=== PATIENT | male | born 1995 | race Caucasian/White ===

== ENCOUNTER 2020-03-29 12:41 | Inpatient (IN) | payer OTHER ==
[~2020-03-29] VITALS: Ht 170.2 cm; Wt 58.1 kg
[2020-03-30] MEDS: TraMADol HCL 50 MG TABLET PO PRN (18:59)
[2020-03-30 19:00] VITALS: BP 122/70
[2020-03-30] MEDS: SENNA 187 MG TABLET PO SCH (21:04)
[2020-03-30] MEDS: DOCUSATE SODIUM 100 MG CAPSULE PO SCH (21:04)
[2020-03-30 21:18] VITALS: BP 122/70
[2020-03-31 00:27] VITALS: BP 116/68
[2020-03-31] MEDS: ACETAMINOPHEN 325 MG TABLET PO PRN ×3 (00:27→16:40)
[2020-03-31 06:44] LABS: BASOPHILS % (AUTO) 0.6 % (0.0-2.0); HEMATOCRIT 29.2 % (41-53); HEMOGLOBIN 9.8 g/dL (13.5-17.5); LYMPHOCYTES # (AUTO) 0.9 K/uL (1.0-4.8); LYMPHOCYTES % (AUTO) 13.1 % (22.0-44.0); MEAN CORPUSCULAR HEMOGLOBIN 27.6 pg (26.0-34.0); MEAN CORPUSCULAR HGB CONC 33.7 G/dL (31.0-37.0); MEAN CORPUSCULAR VOLUME 82 fL (80-100); MONOCYTES # (AUTO) 0.7 K/uL (0.1-1.0); MONOCYTES % (AUTO) 9.7 % (2.0-9.0); NEUTROPHILS # (AUTO) 5.5 K/uL (1.8-7.7); NEUTROPHILS % (AUTO) 75.6 % (40.0-70.0); PLATELET COUNT (AUTO) 272 K/uL (150-450); RED BLOOD CELL COUNT(AUTO) 3.55 MIL/uL (4.50-5.90); RED CELL DISTRIBUTION WIDTH 15.1 % (11.5-14.5)
[2020-03-31 07:14] LABS: ALANINE AMINOTRANSFERASE 35 U/L (12-78); ALBUMIN 2.5 g/dL (3.4-5.0); ALKALINE PHOSPHATASE 98 U/L (46-116); ANION GAP 6 mmol/L (8-16); ASPARTATE AMINOTRANSFERASE 16 U/L (15-37); BILIRUBIN,TOTAL 0.3 mg/dL (0.1-1.0); CALCIUM, TOTAL 9.1 mg/dL (8.8-10.5); CARBON DIOXIDE 28 mmol/L (22-29); CHLORIDE 101 mmol/L (98-107); CREATININE 0.75 mg/dL (0.60-1.30); GLOMERULAR FILTR. RATE CALC > 60 mL/min (>60); GLUCOSE,RANDOM 96 mg/dL (70-110); POTASSIUM 3.9 mmol/L (3.5-5.1); SODIUM SERUM 135 mmol/L (136-145); TOTAL PROTEIN, SERUM 7.9 g/dL (6.4-8.2); UREA NITROGEN, BLOOD 9 mg/dL (7-18)
[2020-03-31] MEDS: ENOXAPARIN SODIUM 40 MG/0.4 ML PF SYRINGE SQ SCH (07:47)
[2020-03-31] MEDS: DOCUSATE SODIUM 100 MG CAPSULE PO SCH ×2 (07:47→20:55)
[2020-03-31] MEDS: LIDOCAINE 5% TRANSDERMAL PATCH TD SCH (07:48)
[2020-03-31] MEDS: TraMADol HCL 50 MG TABLET PO PRN (08:59)
[2020-03-31 15:06] VITALS: BP 118/54
[2020-03-31] MEDS: SENNA 187 MG TABLET PO SCH (20:55)
[2020-03-31] MEDS: GABAPENTIN 100 MG CAPSULE PO SCH (20:55)
[2020-03-31] MEDS: -LIDODERM PATCH NOTE- MISC SCH (20:59)
[2020-04-01 00:40] VITALS: BP 120/54
[2020-04-01] MEDS: ACETAMINOPHEN 325 MG TABLET PO PRN ×4 (00:40→19:56)
[2020-04-01] MEDS: TraMADol HCL 50 MG TABLET PO PRN ×4 (00:41→23:18)
[2020-04-01 08:15] VITALS: BP 123/67
[2020-04-01] MEDS: LIDOCAINE 5% TRANSDERMAL PATCH TD SCH (09:00)
[2020-04-01] MEDS: MULTIVITAMINS WITH MINERALS, THERAPEUTIC TABLET PO SCH (09:02)
[2020-04-01] MEDS: DOCUSATE SODIUM 100 MG CAPSULE PO SCH ×2 (09:02→19:56)
[2020-04-01] MEDS: GABAPENTIN 100 MG CAPSULE PO SCH ×3 (09:02→19:56)
[2020-04-01] MEDS: ENOXAPARIN SODIUM 40 MG/0.4 ML PF SYRINGE SQ SCH (09:03)
[2020-04-01 16:25] VITALS: BP 106/64
[2020-04-01] MEDS ORDERED: SODIUM CHLORIDE 0.9% 100 ML ONE (19:52)
[2020-04-01] MEDS ORDERED: IOVERSOL 350 MG/ML 100 ML VIAL ONE (19:52)
[2020-04-01] MEDS: SENNA 187 MG TABLET PO SCH (19:56)
[2020-04-01] MEDS: -LIDODERM PATCH NOTE- MISC SCH (21:00)
[2020-04-01 23:18] VITALS: BP 117/56
[2020-04-02] MEDS: ACETAMINOPHEN 325 MG TABLET PO PRN ×2 (06:03→23:21)
[2020-04-02 07:14] LABS: ANION GAP 9 mmol/L (8-16); CALCIUM, TOTAL 8.6 mg/dL (8.8-10.5); CARBON DIOXIDE 26 mmol/L (22-29); CHLORIDE 103 mmol/L (98-107); CREATININE 0.67 mg/dL (0.60-1.30); GLOMERULAR FILTR. RATE CALC > 60 mL/min (>60); GLUCOSE,RANDOM 95 mg/dL (70-110); SODIUM SERUM 138 mmol/L (136-145); UREA NITROGEN, BLOOD 10 mg/dL (7-18)
[2020-04-02 08:02] VITALS: BP 112/53
[2020-04-02] MEDS: DOCUSATE SODIUM 250 MG CAPSULE PO SCH ×2 (08:14→21:15)
[2020-04-02] MEDS: MULTIVITAMINS WITH MINERALS, THERAPEUTIC TABLET PO SCH (08:14)
[2020-04-02] MEDS: ENOXAPARIN SODIUM 40 MG/0.4 ML PF SYRINGE SQ SCH (08:14)
[2020-04-02] MEDS: GABAPENTIN 100 MG CAPSULE PO SCH ×3 (08:15→21:13)
[2020-04-02] MEDS: LIDOCAINE 5% TRANSDERMAL PATCH TD SCH (08:16)
[2020-04-02] MEDS: TraMADol HCL 50 MG TABLET PO PRN (11:53)
[2020-04-02 15:32] VITALS: BP 114/57
[2020-04-02] MEDS: SENNA 187 MG TABLET PO SCH (21:11)
[2020-04-02] MEDS: -LIDODERM PATCH NOTE- MISC SCH (21:15)
[2020-04-02 23:21] VITALS: BP 118/59
[2020-04-03 07:34] VITALS: BP 117/64
[2020-04-03] MEDS: GABAPENTIN 100 MG CAPSULE PO SCH (07:34)
[2020-04-03] MEDS: MULTIVITAMINS WITH MINERALS, THERAPEUTIC TABLET PO SCH (07:34)
[2020-04-03] MEDS: DOCUSATE SODIUM 250 MG CAPSULE PO SCH ×2 (07:34→20:15)
[2020-04-03] MEDS: ACETAMINOPHEN 325 MG TABLET PO PRN ×3 (07:34→16:03)
[2020-04-03] MEDS: LIDOCAINE 5% TRANSDERMAL PATCH TD SCH (08:51)
[2020-04-03] MEDS: ENOXAPARIN SODIUM 40 MG/0.4 ML PF SYRINGE SQ SCH (08:51)
[2020-04-03] MEDS: TraMADol HCL 50 MG TABLET PO PRN (12:45)
[2020-04-03 15:55] VITALS: BP 120/55
[2020-04-03] MEDS: GABAPENTIN 300 MG CAPSULE PO SCH ×2 (16:03→20:16)
[2020-04-03] MEDS: SENNA 187 MG TABLET PO SCH (20:16)
[2020-04-03] MEDS: -LIDODERM PATCH NOTE- MISC SCH (20:20)
[2020-04-04 00:28] VITALS: BP 106/52
[2020-04-04] MEDS: ACETAMINOPHEN 325 MG TABLET PO PRN ×4 (00:28→23:42)
[2020-04-04] MEDS: TraMADol HCL 50 MG TABLET PO PRN ×3 (06:03→20:06)
[2020-04-04 07:45] VITALS: BP 123/72
[2020-04-04] MEDS: MULTIVITAMINS WITH MINERALS, THERAPEUTIC TABLET PO SCH (07:56)
[2020-04-04] MEDS: ENOXAPARIN SODIUM 40 MG/0.4 ML PF SYRINGE SQ SCH (07:57)
[2020-04-04] MEDS: GABAPENTIN 300 MG CAPSULE PO SCH (07:57)
[2020-04-04] MEDS: DOCUSATE SODIUM 250 MG CAPSULE PO SCH ×2 (07:57→20:06)
[2020-04-04] MEDS: LIDOCAINE 5% TRANSDERMAL PATCH TD SCH ×2 (07:57→09:00)
[2020-04-04 14:10] VITALS: BP 119/66
[2020-04-04] MEDS: PREGABALIN 50 MG CAPSULE PO SCH ×2 (15:53→20:06)
[2020-04-04] MEDS: LIDOCAINE 2% 30 ML JELLY TP SCH ×2 (15:54→20:08)
[2020-04-04 16:37] VITALS: BP 125/59
[2020-04-04] MEDS: -LIDODERM PATCH NOTE- MISC SCH (20:06)
[2020-04-04] MEDS: SENNA 187 MG TABLET PO SCH (20:06)
[2020-04-04 21:29] LABS: APPEARANCE,URINE TURBID (CLEAR); BILIRUBIN,URINE NEGATIVE (NEGATIVE); GLUCOSE, URINE (UA) NEGATIVE (NEGATIVE); KETONES,URINE 15 mg/dL (NEGATIVE); LEUKOCYTE ESTERASE ,URINE NEGATIVE (NEGATIVE); NITRATE,URINE NEGATIVE (NEGATIVE); OCCULT BLOOD,URINE NEGATIVE (NEGATIVE); PROTEIN,URINE TRACE (NEGATIVE)
[2020-04-04 23:42] VITALS: BP 112/51
[2020-04-05] MEDS: TraMADol HCL 50 MG TABLET PO PRN ×2 (05:41→16:45)
[2020-04-05 07:07] LABS: BASOPHILS % (AUTO) 0.4 % (0.0-2.0); EOSINOPHILS % (AUTO) 0.7 % (1.0-6.0); HEMATOCRIT 27.4 % (41-53); HEMOGLOBIN 9.2 g/dL (13.5-17.5); LYMPHOCYTES # (AUTO) 0.8 K/uL (1.0-4.8); LYMPHOCYTES % (AUTO) 7.6 % (22.0-44.0); MEAN CORPUSCULAR HEMOGLOBIN 27.2 pg (26.0-34.0); MEAN CORPUSCULAR HGB CONC 33.6 G/dL (31.0-37.0); MEAN CORPUSCULAR VOLUME 81 fL (80-100); MONOCYTES # (AUTO) 0.8 K/uL (0.1-1.0); MONOCYTES % (AUTO) 7.9 % (2.0-9.0); NEUTROPHILS # (AUTO) 8.3 K/uL (1.8-7.7); NEUTROPHILS % (AUTO) 83.4 % (40.0-70.0); PLATELET COUNT (AUTO) 306 K/uL (150-450); RED BLOOD CELL COUNT(AUTO) 3.38 MIL/uL (4.50-5.90); RED CELL DISTRIBUTION WIDTH 14.8 % (11.5-14.5)
[2020-04-05 07:22] LABS: ALANINE AMINOTRANSFERASE 43 U/L (12-78); ALBUMIN 2.3 g/dL (3.4-5.0); ALKALINE PHOSPHATASE 123 U/L (46-116); ANION GAP 8 mmol/L (8-16); ASPARTATE AMINOTRANSFERASE 28 U/L (15-37); BILIRUBIN,TOTAL 0.3 mg/dL (0.1-1.0); CALCIUM, TOTAL 8.6 mg/dL (8.8-10.5); CARBON DIOXIDE 27 mmol/L (22-29); CHLORIDE 98 mmol/L (98-107); CREATININE 0.51 mg/dL (0.60-1.30); GLOMERULAR FILTR. RATE CALC > 60 mL/min (>60); GLUCOSE,RANDOM 100 mg/dL (70-110); POTASSIUM 3.8 mmol/L (3.5-5.1); SODIUM SERUM 133 mmol/L (136-145); TOTAL PROTEIN, SERUM 7.6 g/dL (6.4-8.2); UREA NITROGEN, BLOOD 11 mg/dL (7-18)
[2020-04-05 09:12] VITALS: BP 127/55
[2020-04-05] MEDS: DOCUSATE SODIUM 250 MG CAPSULE PO SCH ×2 (09:19→20:18)
[2020-04-05] MEDS: MULTIVITAMINS WITH MINERALS, THERAPEUTIC TABLET PO SCH (09:19)
[2020-04-05] MEDS: PREGABALIN 50 MG CAPSULE PO SCH ×3 (09:19→20:18)
[2020-04-05] MEDS: ENOXAPARIN SODIUM 40 MG/0.4 ML PF SYRINGE SQ SCH (09:19)
[2020-04-05] MEDS: ACETAMINOPHEN 325 MG TABLET PO PRN ×2 (09:19→20:18)
[2020-04-05] MEDS: LIDOCAINE 5% TRANSDERMAL PATCH TD SCH (12:58)
[2020-04-05] MEDS: LIDOCAINE 2% 30 ML JELLY TP SCH ×3 (12:59→20:17)
[2020-04-05 15:30] VITALS: BP 109/51
[2020-04-05] MEDS: SENNA 187 MG TABLET PO SCH (20:18)
[2020-04-05] MEDS: -LIDODERM PATCH NOTE- MISC SCH (20:26)
[2020-04-06] VITALS: BP 110/55
[2020-04-06] MEDS: TraMADol HCL 50 MG TABLET PO PRN ×3 (05:39→23:22)
[2020-04-06 07:39] VITALS: BP 116/55
[2020-04-06] MEDS: ACETAMINOPHEN 325 MG TABLET PO PRN ×2 (07:39→14:18)
[2020-04-06] MEDS: PREGABALIN 50 MG CAPSULE PO SCH (07:39)
[2020-04-06] MEDS: LIDOCAINE 2% 30 ML JELLY TP SCH ×3 (07:39→21:08)
[2020-04-06] MEDS: ENOXAPARIN SODIUM 40 MG/0.4 ML PF SYRINGE SQ SCH (07:39)
[2020-04-06] MEDS: MULTIVITAMINS WITH MINERALS, THERAPEUTIC TABLET PO SCH (07:39)
[2020-04-06] MEDS: DOCUSATE SODIUM 250 MG CAPSULE PO SCH ×2 (07:39→21:08)
[2020-04-06] MEDS: LIDOCAINE 5% TRANSDERMAL PATCH TD SCH (07:39)
[2020-04-06] MEDS: PREGABALIN 75 MG CAPSULE PO SCH ×2 (15:14→21:08)
[2020-04-06 16:00] VITALS: BP 118/63
[2020-04-06] MEDS: SENNA 187 MG TABLET PO SCH (21:08)
[2020-04-06] MEDS: -LIDODERM PATCH NOTE- MISC SCH (21:08)
[2020-04-06 23:22] VITALS: BP 116/53
[2020-04-07 08:05] VITALS: BP 113/68
[2020-04-07] MEDS: PREGABALIN 75 MG CAPSULE PO SCH (08:30)
[2020-04-07] MEDS: DOCUSATE SODIUM 250 MG CAPSULE PO SCH ×2 (08:31→20:46)
[2020-04-07] MEDS: MULTIVITAMINS WITH MINERALS, THERAPEUTIC TABLET PO SCH (08:31)
[2020-04-07] MEDS: TraMADol HCL 50 MG TABLET PO PRN (08:31)
[2020-04-07] MEDS: LIDOCAINE 2% 30 ML JELLY TP SCH ×3 (08:31→20:46)
[2020-04-07] MEDS: LIDOCAINE 5% TRANSDERMAL PATCH TD SCH (09:00)
[2020-04-07] MEDS: ENOXAPARIN SODIUM 40 MG/0.4 ML PF SYRINGE SQ SCH (10:38)
[2020-04-07] MEDS: PREGABALIN 50 MG CAPSULE PO SCH ×2 (15:53→20:46)
[2020-04-07 16:25] VITALS: BP 109/62
[2020-04-07] MEDS: -LIDODERM PATCH NOTE- MISC SCH (20:46)
[2020-04-07] MEDS: SENNA 187 MG TABLET PO SCH (20:46)
[2020-04-08 01:42] VITALS: BP 100/58
[2020-04-08] MEDS: TraMADol HCL 50 MG TABLET PO PRN ×2 (01:42→20:06)
[2020-04-08 08:02] VITALS: BP 108/59
[2020-04-08] MEDS: LIDOCAINE 2% 30 ML JELLY TP SCH ×3 (09:00→21:09)
[2020-04-08] MEDS: LIDOCAINE 5% TRANSDERMAL PATCH TD SCH (09:00)
[2020-04-08] MEDS: ENOXAPARIN SODIUM 40 MG/0.4 ML PF SYRINGE SQ SCH (09:30)
[2020-04-08] MEDS: PREGABALIN 50 MG CAPSULE PO SCH ×3 (09:30→21:10)
[2020-04-08] MEDS: DOCUSATE SODIUM 250 MG CAPSULE PO SCH ×2 (09:30→20:07)
[2020-04-08] MEDS: MULTIVITAMINS WITH MINERALS, THERAPEUTIC TABLET PO SCH (09:30)
[2020-04-08] MEDS: ACETAMINOPHEN 325 MG TABLET PO PRN (12:41)
[2020-04-08 17:25] VITALS: BP 98/52
[2020-04-08] MEDS: SENNA 187 MG TABLET PO SCH (20:07)
[2020-04-08] MEDS: -LIDODERM PATCH NOTE- MISC SCH (20:12)
[2020-04-09 00:03] VITALS: BP 117/60
[2020-04-09 07:35] VITALS: BP 108/68
[2020-04-09] MEDS: MULTIVITAMINS WITH MINERALS, THERAPEUTIC TABLET PO SCH (07:35)
[2020-04-09] MEDS: ACETAMINOPHEN 325 MG TABLET PO PRN (07:35)
[2020-04-09] MEDS: PREGABALIN 50 MG CAPSULE PO SCH (07:35)
[2020-04-09] MEDS: ENOXAPARIN SODIUM 40 MG/0.4 ML PF SYRINGE SQ SCH (07:35)
[2020-04-09] MEDS: DOCUSATE SODIUM 250 MG CAPSULE PO SCH (08:13)
[2020-04-09] MEDS: LIDOCAINE 5% TRANSDERMAL PATCH TD SCH (08:13)
[2020-04-09] MEDS: LIDOCAINE 2% 30 ML JELLY TP SCH (08:13)
== END 2020-04-09 12:08 | disposition short-term general hospital (02) | DRG 947 ==
LOC: 2WR 03-30 17:46
PROVIDERS: ADMIT Physical Medicine & Rehabilitation; ATTEND Physical Medicine & Rehabilitation
DX: R53.81 Other malaise (principal); E43 Unspecified severe protein-calorie malnutrition; E87.1 Hypo-osmolality and hyponatremia; M79.10 Myalgia, unspecified site; D64.9 Anemia, unspecified; Z20.828 Contact with and (suspected) exposure to other viral communicable diseases; M79.609 Pain in unspecified limb; R63.4 Abnormal weight loss
CPT/HCPCS: 70491; 84145; 87040; 87081; 93970; 97110; 97112; 97116; 97140; 97150; 97163; 97165; 97530; 97535; 99366; J1650; J7050; 36415-L1; 36415-TC; 71046; 71046-TC; 81003-TC